=== PATIENT | female | born 1950 | race Hispanic/Latino ===

== ENCOUNTER 2017-06-25 09:42 | Emergency (ER) | payer BC ==
[2017-06-25 10:08] LABS: #Lymphocytes 2.2 thou/uL (1.20-3.40); #Monocytes 0.4 thou/uL (0.11-0.59); #Neutrophils 5.9 thou/uL (1.40-6.50); %Basophils 0.2 % (0.0-1.0); %Eosinophils 0.5 % (0.0-10.0); %Lymphocytes 25.6 % (21.0-51.0); %Monocytes 4.5 % (0.0-10.0); Hematocrit 46.8 % (36.0-47.0); Mean Platelet Volume 7.4 fL (7.4-10.4); Red Blood Cell (RBC) Count 5.13 mill/uL (4.20-5.40); White Blood Cell (WBC) Count 8.5 thou/uL (4.8-10.8)
[2017-06-25 10:26] LABS: PTT 31.1 SEC (22.9-36.1); Prothrombin Time 13.3 SEC (12.0-14.7)
[2017-06-25 10:28] LABS: Anion Gap 15 mmol/L (10-20); BUN (Urea Nitrogen) 21 mg/dL (9.8-20.1); Calc. Creatinine Clearance 0 mL/min (70-130); Calcium 10.8 mg/dL (7.8-10.44); Carbon Dioxide 24 mmol/L (23-31); Chloride 103 mmol/L (98-107); Estimated GFR-MDRD 69
[2017-06-25 10:42] LABS: Bilirubin Negative (Negative); Blood, Urine Small (Negative); Glucose, Urine (Dipstick) Negative (Negative); Ketone, Urine Negative (Negative); Nitrite Negative (Negative); Protein, Urine (Dipstick) Negative (Neg-Trace); Urobilinogen 0.2 mg/dL (0.2-1.0)
[2017-06-25 10:43] LABS: Bacteria/HPF None Seen HPF (None Seen); Hyaline Casts/LPF 0-3 HYALINE CAST LPF (0-3 Hyaline); Squamous Epithelial None Seen HPF (0-3); WBC/HPF None Seen HPF (0-3)
== END 2017-06-25 11:00 | disposition home or self-care (01) ==
LOC: ERS 09:42
DX: K62.5 Hemorrhage of anus and rectum (principal); K59.00 Constipation, unspecified; K64.8 Other hemorrhoids; R31.9 Hematuria, unspecified; E03.9 Hypothyroidism, unspecified; Z79.899 Other long term (current) drug therapy
CPT/HCPCS: 36415; 80048; 81003; 81015; 82274; 85025; 85610; 85730; 99283

== ENCOUNTER 2017-07-12 08:22 | Outpatient (CLI) | payer BC ==
--- NOTE | 2017-07-12 10:28 | CT ---
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 TECHNIQUE: No oral contrast. IV contrast: Isovue. Precontrast, venous/nephrographic phase, and excretory/pyelographic phase, scans through the entire a bdomen and pelvis. Coronal reconstructions of excretory/pyelographic phase scan. FINDINGS: There are no renal, ureteral, or bladder calculi. There is no hydronephrosis bilaterally. There are 2 tiny, superficial cortical hypodensities in the bilateral kidneys, too small to characterize, but st atistically most likely to represent cysts, including a 2 mm such lesion at the left renal lower pole laterally (axial image 40 of 190, series 3) and an 8 mm such lesion at the right renal mid pole late rally (axial image 32 of 190, series 3). Otherwise, no focal lesion of the bilateral nephrograms. The adrenals, pancreas, and spleen are normal. There are several small focal hypodensities in the right lobe of the liver. The largest one is lateral and subcapsular in location measuring 1.8 cm in hepatic segment 8, and is a simple cyst. Some of the others are too small to definitively characterize, but are probably all cysts. Otherwise, the liver is normal in size and attenuation and enhancement. No si gns of acute colonic diverticulitis. Normal urinary bladder wall thickness. No bladder tumor identifi ed. No free fluid or free air identified within the abdominal cavity or pelvic cavity. Lung bases are grossly clear. No small bowel dilation. No iliac chain, retroperitoneal, jannet hepatis, or mesenteri c lymphadenopathy. IMPRESSION: 1. A couple of tiny cortical, superficial hypodensities in the kidneys, one on each side, too small to characterize (but statistically most likely to represent tiny cysts). 2. Otherwise normal appearance of genitourinary tracts. 3. Hepatic cysts. 4. Otherwise negative. POS: JUAN
== END 2017-07-12 08:23 | disposition home or self-care (01) ==
LOC: CT 08:22
PROVIDERS: ATTEND Urology
DX: R31.1 Benign essential microscopic hematuria (principal); N28.89 Other specified disorders of kidney and ureter; K76.89 Other specified diseases of liver
CPT/HCPCS: 74178

== ENCOUNTER 2019-01-25 10:15 | Outpatient (CLI) | payer BC ==
--- NOTE | 2019-01-25 11:41 | MRI ---
MRI LUMBAR SPINE WITHOUT CONTRAST: 01/25/2019 COMPARISON: None. HISTORY: Back pain. TECHNIQUE: Multiplanar, multisequence MR imaging of the lumbar spine is obtained without contrast. FINDINGS: The sagittal STIR imaging demonstrates no focal area of osseous marrow edema. A benign hemangioma is noted at the T12 level. T12-L1: The conus medullaris terminates at the T12-L1 level. There is mild disc desiccation, disc s pace narrowing, and disc bulge with no associated central canal or neural foraminal stenosis. L1-L2: There is disc desiccation and minimal disc bulge with no central canal or neural foraminal st enosis. L2-L3: Mild bilateral facet hypertrophy. There is disc desiccation and mild disc bulge with no sign ificant central canal or neural foraminal stenosis. L3-L4: Mild bilateral facet hypertrophy. Mild disc space narrowing and disc desiccation with no sig nificant central canal or neural foraminal stenosis. L4-L5: There is disc space narrowing and disc desiccation with mild disc bulge. Right facet hypertr ophy noted. No significant central canal or neural foraminal stenosis. L5-S1: There is disc desiccation and bilateral facet hypertrophy. Minimal disc bulge is present. N o significant central canal or neural foraminal stenosis. 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 There is a subtle probable pars defect on the right at L5 as well. The imaged retroperitoneal structures demonstrate no acute findings. IMPRESSION: 1. Degenerative changes within the lumbar spine, as detailed above. 2. No central canal or neural foraminal stenosis. Transcribed Date/Time: 01/25/2019 12:05 PM
== END 2019-01-25 10:16 | disposition home or self-care (01) ==
LOC: BICMRI 10:15
PROVIDERS: ATTEND Family Medicine
DX: M54.5 Low back pain (principal); M47.816 Spondylosis without myelopathy or radiculopathy, lumbar region; M47.817 Spondylosis without myelopathy or radiculopathy, lumbosacral region
CPT/HCPCS: 72148

== ENCOUNTER 2019-03-27 12:47 | Outpatient (CLI) | payer BC ==
--- NOTE | 2019-04-02 06:43 | MMO ---
Bilateral MAMMO Bilat Screen [facility]. CLINICAL HISTORY: Patient is 68 years old and is seen for screening. The patient has no family history of breast cancer. The patient has no personal history of cancer. VIEWS: The views performed were: bilateral craniocaudal with tomosynthesis and bilateral mediolateral oblique with tomosynthesis. FILMS COMPARED: The present examination has been compared to prior imaging studies performed at [facility] on 05/15/2012, 06/24/2014, 12/01/2015 and 06/20/2017. MAMMOGRAM FINDINGS: There are scattered fibroglandular densities. There are no suspicious masses, suspicious calcifications, or new areas of architectural distortion. IMPRESSION: THERE IS NO MAMMOGRAPHIC EVIDENCE OF MALIGNANCY. A ROUTINE FOLLOW-UP MAMMOGRAM IN 1 YEAR IS RECOMMENDED. THE RESULTS OF THIS EXAM WERE SENT TO THE PATIENT. ACR BI-RADS Category 1 - Negative MAMMOGRAPHY NOTE: 1. A negative mammogram report should not delay a biopsy if a dominant of clinically suspicious mass is present. 2. Approximately 10% to 15% of breast cancers are not detected by mammography. 3. Adenosis and dense breasts may obscure an underlying neoplasm. Reported by: LEDA DUBOIS MD Electonically Signed: [id number]
== END 2019-03-27 12:48 | disposition home or self-care (01) ==
LOC: BICMAMMO 12:47
PROVIDERS: ATTEND Family Medicine
DX: Z12.31 Encounter for screening mammogram for malignant neoplasm of breast (principal)
CPT/HCPCS: 77063; 77067

== ENCOUNTER 2021-12-07 11:04 | Outpatient (CLI) | payer MEDICARE | END 2021-12-07 11:05 | disposition home or self-care (01) | LOC: BICMAMMO 11:04 | PROVIDERS: ATTEND Family Medicine | DX: Z12.31 Encounter for screening mammogram for malignant neoplasm of breast (principal) | CPT/HCPCS: 77063; 77067 ==

== ENCOUNTER 2024-02-23 09:07 | Emergency (ER) | payer MEDICARE ==
[2024-02-23] MEDS ORDERED: Ibuprofen 800 MG TAB ONE (11:42)
[2024-02-23] MEDS ORDERED: Boostrix 0.5 ML (Tdap) VIAL (>/=7 yrs of age) ONE (11:42)
== END 2024-02-23 11:59 | disposition home or self-care (01) ==
LOC: ERS 09:07
DX: S09.90XA Unspecified injury of head, initial encounter (principal); S00.212A Abrasion of left eyelid and periocular area, initial encounter; S00.31XA Abrasion of nose, initial encounter; S60.512A Abrasion of left hand, initial encounter; I10 Essential (primary) hypertension; E03.9 Hypothyroidism, unspecified; W18.09XA Striking against other object with subsequent fall, initial encounter; Y93.01 Activity, walking, marching and hiking; Z23 Encounter for immunization; Z79.899 Other long term (current) drug therapy
CPT/HCPCS: 70450; 70486; 72125; 90471; 90715